=== PATIENT | female | born 1940 ===

== ENCOUNTER 2022-09-09 14:09 | Emergency (ER) | payer SELFPAY ==
[~2022-09-09] VITALS: Ht 165.1 cm; Wt 81.8 kg
[2022-09-09 14:25] VITALS: BP 144/80
[2022-09-09 15:44] LABS: BASOPHILS % (AUTO) 0.8 % (0.0-2.0); EOSINOPHILS % (AUTO) 0.9 % (1.0-6.0); HEMATOCRIT 40.2 % (36-46); HEMOGLOBIN 13.5 g/dL (12.0-16.0); LYMPHOCYTES # (AUTO) 2.2 K/uL (1.0-4.8); LYMPHOCYTES % (AUTO) 23.2 % (22.0-44.0); MEAN CORPUSCULAR HGB CONC 33.5 G/dL (31.0-37.0); MEAN CORPUSCULAR VOLUME 86 fL (80-100); MONOCYTES # (AUTO) 0.8 K/uL (0.1-1.0); MONOCYTES % (AUTO) 8.3 % (2.0-9.0); NEUTROPHILS # (AUTO) 6.4 K/uL (1.8-7.7); NEUTROPHILS % (AUTO) 66.8 % (40.0-70.0); PLATELET COUNT (AUTO) 316 K/uL (150-450); RED BLOOD CELL COUNT(AUTO) 4.65 MIL/uL (4.00-5.20); RED CELL DISTRIBUTION WIDTH 14.2 % (11.5-14.5)
[2022-09-09 15:56] LABS: CALCIUM, TOTAL 8.9 mg/dL (8.8-10.5); CARBON DIOXIDE 30 mmol/L (22-29); CHLORIDE 100 mmol/L (98-107); CREATININE 0.64 mg/dL (0.60-1.30); GLUCOSE,RANDOM 91 mg/dL (70-110); UREA NITROGEN, BLOOD 7 mg/dL (7-18)
[2022-09-09 16:02] LABS: ALANINE AMINOTRANSFERASE 77 U/L (12-78); ALBUMIN 3.6 g/dL (3.4-5.0); ALKALINE PHOSPHATASE 48 U/L (46-116); ASPARTATE AMINOTRANSFERASE 37 U/L (15-37); BILIRUBIN,TOTAL 0.5 mg/dL (0.1-1.0); TOTAL PROTEIN, SERUM 7.1 g/dL (6.4-8.2)
[2022-09-09 16:07] LABS: ANION GAP 8 mmol/L (8-16); SODIUM SERUM 138 mmol/L (136-145)
[2022-09-09 16:08] LABS: GLOMERULAR FILTR. RATE CALC > 60 mL/min (>60); POTASSIUM 2.6 mmol/L (3.5-5.1)
[2022-09-09] MEDS: POTASSIUM CHLORIDE 20 MEQ ER TABLET PO ONE ×2 (16:16→16:34)
== END 2022-09-09 16:36 | disposition home or self-care (01) ==
LOC: EMS 14:09 → EDBD 14:09 → EMS 16:36
DX: E87.6 Hypokalemia (principal); Z59.00 Homelessness unspecified
CPT/HCPCS: 99283; 80053; 85025; 36415; G0480